=== PATIENT | female | born 1950 | race Caucasian/White ===

== ENCOUNTER → 2018-07-18 | Outpatient (CLI) | payer MEDICARE ==
[~2018-07-18] MED LIST: AMOX-559 PO; ASPI-1471 PO; AZIT-17 PO; CORED OT; CYCL10TA29 PO; FLU45SYR25 IM ONLY; FLUT16SP19 NS; GLUC-198 PO; GUAI-204 PO; IBUP-56 PO; MELO-207 PO; OMEG-11 PO; PNEI IM; PNEU0.5D3 IM; VIT-9 PO
[2018-07-18 17:30] LABS: LDL CHOLESTEROL 126 mg/dl
[2018-07-18 17:33] LABS: PLATELET COUNT, AUTOMATED 288 K/uL (150-450)
== END ==
LOC: LAB 16:18
PROVIDERS: ATTEND Emergency Medicine
DX: M85.80 Other specified disorders of bone density and structure, unspecified site (principal); E78.5 Hyperlipidemia, unspecified
CPT/HCPCS: 36415; 82040; 82247; 82306; 82310; 82374; 82435; 82465; 82565; 82947; 83718; 84075; 84132; 84155; 84295; 84443; 84450; 84460; 84478; 84520; 85025

== ENCOUNTER → 2018-08-20 | Outpatient (CLI) | payer MEDICARE ==
--- NOTE | 2018-08-20 15:45 | RADIOLOGY IMAGING REPORT ---
FACILITY: [facility] PATIENT NAME: Aly Silver : 1950 MR: [id number] V: [id number] EXAM DATE: ORDERING PHYSICIAN: FOSTER FARIAS TECHNOLOGIST: Location: [facility] Patient: Aly Silver : 1950 Visit/Account:[id number] Date of Sevice: 08/20/2018 BONE DENSITY HISTORY: Screening DEXA Scan Clinical history: Osteopenia. Comparison: None available. LUMBAR SPINE: The bone mineral density (BMD) measured from L1-L4 correlates with a Z-score -1.5 and a T-score of -2 .6 which is osteoporosis as defined by the World Health Organization. The corresponding risk of frac ture in the lumbar spine is increased over 6 times compared with a young adult reference population. HIP: Bone mineral density (BMD) measured in the Left total hip region correlates with a Z-score -0.3 and a T-score of -1.3 which is osteopenia as defined by the World Health Organization. The corresponding risk of fracture in the hip is increased between 2-3 times compared with a young adult reference popu lation. Bone mineral density (BMD) measured in the Femoral Neck region measures 0.922 g/cm2. . T score of -0 .8. Low normal. Fracture risk increased between 1-2 times Impression: 1. Lumbar spine: Osteoporosis 2. Left Total Hip: Osteopenia 3. Femoral Neck: Bone Mineral Density is 0.922 g/cm2 . Low normal The next DEXA scan of this patient should include the following sites: L1-L4 and the left hip. FRAX? WHO Fracture Risk Assessment Tool link: <http://www.shef.ac.uk/FRAX/tool.jsp?locationValue=9> PLEASE NOTE: 1) The World Health Organization defines low BMD as follows: T-score Normal > -1 Osteopenia < -1 and > -2.5 Osteoporosis < -2.5 without fractures Established osteoporosis < -2.5 with fractures 2) In general, you may wish to consider: Diagnosis Treatment Follow-up DEXA Normal BMD Prevention 2-3 years Osteopenia Prevention/therapy 1-2 years Osteoporosis Therapy Yearly 3) Fracture risk estimated from the T-score is more accurate for vertebral fractures (often spontane ous) than for hip fractures. Report Dictated By: Luis Layton MD at 08/20/2018 3:38 PM Report E-Signed By: Luis Layton MD at 08/20/2018 3:40 PM WSN:[email or web address]
--- NOTE | 2018-08-21 08:31 | RADIOLOGY IMAGING REPORT ---
FACILITY: [facility] [place] PATIENT NAME: IAN SHANKS : [id number] MR: [id number] V: [id number] EXAM DATE: ORDERING PHYSICIAN: FOSTER FARIAS TECHNOLOGIST: Sherly Mclaughlin PROCEDURE:BILATERAL DIGITAL SCREENING MAMMOGRAM WITH CAD ASSISTED INTERPRETATION & 3D TOMOSYNTHESIS COMPARISON:Prior mammograms 03/08/17, 02/23/16, 03/10/14, 01/21/13, 12/16/11. INDICATIONS:Screening FINDINGS: The breasts are heterogeneously dense which can obscure small masses. The parenchymal pattern has remained stable allowing for difference in mammographic technique & patient positioning. DIAGNOSTIC CATEGORY 1--NEGATIVE. RECOMMENDATIONS: ROUTINE MAMMOGRAM AND CLINICAL EVALUATION. IMPRESSION: BIRADS 1: Negative. No significant abnormality is seen. Dictated by: Kimberly Peace M.D. on 08/20/2018 at 15:01 Transcribed by: ADI on 08/20/2018 at 15:47 Approved by: Kimberly Peace M.D. on 08/21/2018 at 8:30 [facility]
== END ==
LOC: MAMO 02:14
PROVIDERS: ATTEND Emergency Medicine
DX: Z13.820 Encounter for screening for osteoporosis (principal); Z12.31 Encounter for screening mammogram for malignant neoplasm of breast; M81.0 Age-related osteoporosis without current pathological fracture; M85.88 Other specified disorders of bone density and structure, other site
CPT/HCPCS: 77063; 77067; 77080

== ENCOUNTER → 2018-09-14 | Outpatient (CLI) | payer MEDICARE | LOC: LAB 09:23 | PROVIDERS: ATTEND Emergency Medicine | DX: M81.0 Age-related osteoporosis without current pathological fracture (principal) | CPT/HCPCS: 36415; 82310; 83970 ==

== ENCOUNTER → 2018-10-10 | Outpatient (CLI) | payer MEDICARE ==
[~2018-10-10] MED LIST changes: +ALEN70TA43 PO
== END ==
LOC: LAB 08:41
PROVIDERS: ATTEND Emergency Medicine
DX: R19.5 Other fecal abnormalities (principal)
CPT/HCPCS: 87177